=== PATIENT | female | born 1975 | race Native Hawaiian/Other Pacific Islander ===

== ENCOUNTER 2017-04-22 16:17 | Emergency (ER) | payer OTHER ==
[~2017-04-22] VITALS: Ht 162.6 cm; Wt 63.0 kg
[2017-04-22 16:35] VITALS: BP 117/76; TEMP 98.2
== END 2017-04-22 16:36 | disposition home or self-care (01) ==
LOC: ED 16:17
DX: M54.9 Dorsalgia, unspecified (principal)